=== PATIENT | male | born 1980 | race Native Hawaiian/Other Pacific Islander ===

== ENCOUNTER 2018-10-23 00:23 | Emergency (ER) | payer OTHER ==
[~2018-10-23] VITALS: Ht 157.5 cm; Wt 59.0 kg
[2018-10-23 00:55] LABS: PLATELET COUNT 405 K/uL (142-355)
[2018-10-23 01:33] VITALS: BP 128/68; TEMP 97.9
== END 2018-10-23 01:45 | disposition short-term general hospital (02) ==
LOC: ED 00:23
PROVIDERS: Internal Medicine
DX: T23.262A Burn of second degree of back of left hand, initial encounter (principal); T22.212A Burn of second degree of left forearm, initial encounter; T20.29XA Burn of second degree of multiple sites of head, face, and neck, initial encounter; T22.291A Burn of second degree of multiple sites of right shoulder and upper limb, except wrist and hand, initial encounter; W36.9 Explosion and rupture of unspecified gas cylinder; T31.20 Burns involving 20-29% of body surface with 0% to 9% third degree burns
CPT/HCPCS: 36415; 80053; 85027; 90471; 90715; 96361; 96365; 96375; 96376; 99285; J0690; J1170; J2405

== ENCOUNTER 2020-04-05 15:03 | Emergency (ER) | payer OTHER ==
[~2020-04-05] VITALS: Ht 157.5 cm; Wt 59.0 kg
[2020-04-05 15:11] VITALS: TEMP 98.1
[2020-04-05 16:43] VITALS: BP 126/75
== END 2020-04-05 16:43 | disposition home or self-care (01) ==
LOC: ED 15:03
DX: S83.8X1A Sprain of other specified parts of right knee, initial encounter (principal); X50.1XXA Overexertion from prolonged static or awkward postures, initial encounter; Y92.89 Other specified places as the place of occurrence of the external cause
CPT/HCPCS: 99282